=== PATIENT | female | born 1955 | race Caucasian/White ===

== ENCOUNTER 2017-02-28 07:27 | Emergency (ER) | payer OTHER ==
[~2017-02-28] VITALS: Ht 149.9 cm; Wt 55.8 kg
[~2017-02-28 07:27] MED LIST: LEVAQUIN750 MG PO; MUCINEX600 MG PO
[2017-02-28 09:45] VITALS: BP 133/68
== END 2017-02-28 09:45 | disposition home or self-care (01) ==
LOC: ED 07:27
DX: S70.11XD Contusion of right thigh, subsequent encounter (principal); R03.0 Elevated blood-pressure reading, without diagnosis of hypertension; Z88.0 Allergy status to penicillin; Z88.5 Allergy status to narcotic agent; V92.0 Drowning and submersion due to fall off watercraft
CPT/HCPCS: Q0092

== ENCOUNTER → 2017-08-17 | Outpatient (CLI) | payer OTHER | END | disposition home or self-care (01) | LOC: RD 08-16 08:04 → MA 10:46 → RD 10:46 | PROC: BH02ZZZ Plain Radiography of Bilateral Breasts (ICD-10-PCS; principal; 2017-08-17) | DX: Z12.31 Encounter for screening mammogram for malignant neoplasm of breast (principal) | CPT/HCPCS: 77067 ==

== ENCOUNTER → 2018-03-01 | Outpatient (CLI) | payer OTHER ==
[2018-03-01 08:25] LABS: microscopic required? NO
[2018-03-01 09:01] LABS: BASOPHIL % 1.1 % (0-2); PLATELET COUNT 247 x10^3mcL (130-400); RED CELL DISTRIBUTION WIDTH 13.3 % (11.5-14.5)
[2018-03-01 09:08] LABS: ALKALINE PHOSPHATASE 88 U/L (46-116); ALT/SGPT 29 U/L (14-59); AST/SGOT 19 U/L (15-37); CALCIUM 9.2 mg/dL (8.5-10.1); CARBON DIOXIDE 27.3 mmol/L (21-32); CHLORIDE SERUM 108 mmol/L (98-107); CHOLESTEROL 186 mg/dL (<200); CREATININE SERUM 0.7 mg/dL (0.6-1.0); FREE T4 0.81 ng/dL (0.76-1.46); GFR1 > 60 mL/min; GLUCOSE SERUM 98 mg/dL (74-106); POTASSIUM SERUM 4.9 mmol/L (3.5-5.1); SODIUM SERUM 145 mmol/L (136-145); TRIGLYCERIDES 95 mg/dL (<150)
[2018-03-01 09:12] LABS: CHOLESTEROL/HDL RATIO 2.9; HDL CHOLESTEROL 65 mg/dL (40-60)
[2018-03-01 09:17] LABS: UA SPECIFIC GRAVITY 1.025 (1.005-1.035); urine erythrocyte NEGATIVE (NEGATIVE)
== END | disposition home or self-care (01) ==
LOC: LB 07:44
DX: Z00.00 Encounter for general adult medical examination without abnormal findings (principal); Z12.11 Encounter for screening for malignant neoplasm of colon
CPT/HCPCS: 84439

== ENCOUNTER → 2018-03-22 | Outpatient (CLI) | payer OTHER | END | disposition home or self-care (01) | LOC: LB 09:45 | DX: Z12.11 Encounter for screening for malignant neoplasm of colon (principal) ==

== ENCOUNTER → 2018-07-17 | Outpatient (CLI) | payer OTHER ==
[2018-07-17 09:55] LABS: BASOPHIL % 0.8 % (0-2); PLATELET COUNT 319 x10^3mcL (130-400); RED CELL DISTRIBUTION WIDTH 12.7 % (11.5-14.5)
== END | disposition home or self-care (01) ==
LOC: CT 07:15
PROC: BW28ZZZ Computerized Tomography (CT Scan) of Head (ICD-10-PCS; principal; 2018-07-17)
DX: G44.009 Cluster headache syndrome, unspecified, not intractable (principal); R05 Cough; I10 Essential (primary) hypertension

== ENCOUNTER → 2018-09-27 | Outpatient (CLI) | payer OTHER | END | disposition home or self-care (01) | LOC: US 12:37 | PROC: B345ZZZ Ultrasonography of Bilateral Common Carotid Arteries (ICD-10-PCS; principal; 2018-09-27) | PROC: B348ZZZ Ultrasonography of Bilateral Internal Carotid Arteries (ICD-10-PCS; 2018-09-27) | DX: I10 Essential (primary) hypertension (principal) ==

== ENCOUNTER → 2018-10-09 | Outpatient (CLI) | payer OTHER ==
[2018-10-09 12:05] LABS: FREE T4 0.89 ng/dL (0.76-1.46)
[2018-10-09 17:50] LABS: T3 TOTAL 1.17 ng/mL
== END | disposition home or self-care (01) ==
LOC: US 09:24
DX: N95.1 Menopausal and female climacteric states (principal); R53.83 Other fatigue
CPT/HCPCS: 84439

== ENCOUNTER → 2018-10-10 | Outpatient (CLI) | payer OTHER | END | disposition home or self-care (01) | LOC: US 14:33 | PROC: BG44ZZZ Ultrasonography of Thyroid Gland (ICD-10-PCS; principal; 2018-10-10) | DX: E05.90 Thyrotoxicosis, unspecified without thyrotoxic crisis or storm (principal) ==

== ENCOUNTER → 2018-12-06 | Outpatient (CLI) | payer OTHER | END | disposition home or self-care (01) | LOC: MA 11:50 | PROC: BH02ZZZ Plain Radiography of Bilateral Breasts (ICD-10-PCS; principal; 2018-12-06) | DX: Z12.31 Encounter for screening mammogram for malignant neoplasm of breast (principal) | CPT/HCPCS: 77067 ==

== ENCOUNTER → 2019-04-09 | Outpatient (CLI) | payer OTHER ==
[2019-04-09 07:22] LABS: microscopic required? NO
[2019-04-09 07:59] LABS: BASOPHIL % 1.2 % (0-2); PLATELET COUNT 283 x10^3mcL (130-400); RED CELL DISTRIBUTION WIDTH 12.5 % (11.5-14.5)
[2019-04-09 08:11] LABS: UA SPECIFIC GRAVITY 1.025 (1.005-1.035); urine erythrocyte NEGATIVE (NEGATIVE)
[2019-04-09 08:20] LABS: ALBUMIN 3.9 g/dL (3.4-5.0); ALKALINE PHOSPHATASE 80 U/L (46-116); ALT/SGPT 26 U/L (14-59); AST/SGOT 14 U/L (15-37); BILIRUBIN TOTAL 0.51 mg/dL (0.20-1.00); CALCIUM 8.6 mg/dL (8.5-10.1); CARBON DIOXIDE 27.8 mmol/L (21-32); CHLORIDE SERUM 104 mmol/L (98-107); CHOLESTEROL 177 mg/dL (<200); CREATININE SERUM 0.7 mg/dL (0.6-1.0); FREE T4 0.83 ng/dL (0.76-1.46); GFR1 > 60 mL/min; GLUCOSE SERUM 82 mg/dL (74-106); POTASSIUM SERUM 4.5 mmol/L (3.5-5.1); SODIUM SERUM 140 mmol/L (136-145); TOTAL PROTEIN, SERUM 7.2 g/dL (6.4-8.2); TRIGLYCERIDES 117 mg/dL (<150)
[2019-04-09 08:26] LABS: CHOLESTEROL/HDL RATIO 2.8; HDL CHOLESTEROL 64 mg/dL (40-60)
== END | disposition home or self-care (01) ==
LOC: LB 07:08
DX: Z00.00 Encounter for general adult medical examination without abnormal findings (principal); Z12.11 Encounter for screening for malignant neoplasm of colon; Z83.3 Family history of diabetes mellitus
CPT/HCPCS: 84439

== ENCOUNTER 2019-06-28 06:53 | Day surgery (SDC) | payer OTHER ==
[~2019-06-28] VITALS: Ht 147.3 cm; Wt 59.0 kg
[2019-06-28 07:33] VITALS: BP 139/88
[2019-06-28 14:53] VITALS: BP 120/84
== END 2019-06-28 10:30 | disposition home or self-care (01) ==
LOC: DS 06:53 → OR 09:00 → DS 10:30
DX: Z12.11 Encounter for screening for malignant neoplasm of colon (principal); K57.30 Diverticulosis of large intestine without perforation or abscess without bleeding; K64.8 Other hemorrhoids; I10 Essential (primary) hypertension; E66.9 Obesity, unspecified; Z88.5 Allergy status to narcotic agent; Z88.8 Allergy status to other drugs, medicaments and biological substances; Z79.899 Other long term (current) drug therapy; Z90.710 Acquired absence of both cervix and uterus; Z98.891 History of uterine scar from previous surgery; Z68.28 Body mass index [BMI] 28.0-28.9, adult
CPT/HCPCS: 45378; J1200; J1610; J2250; J2310; J3010; J3490